=== PATIENT | female | born 1930 | race Caucasian/White ===

== ENCOUNTER 2018-03-06 07:58 | Emergency (ER) | payer MEDICARE ==
[2018-03-06] MEDS ORDERED: Bacitracin Zinc 1 Packet ONE (09:31)
[2018-03-06] MEDS ORDERED: Lidocaine 1% w/Epinephrine 1:100K 20 ML VIAL ONE (09:31)
[2018-03-06] MEDS ORDERED: Adacel (T-DAP) 0.5 ML VIAL ONE (09:31)
== END 2018-03-06 10:25 | disposition home or self-care (01) ==
LOC: ERS 07:58
DX: S61.212A Laceration without foreign body of right middle finger without damage to nail, initial encounter (principal); S61.210A Laceration without foreign body of right index finger without damage to nail, initial encounter; S61.252A Open bite of right middle finger without damage to nail, initial encounter; S61.250A Open bite of right index finger without damage to nail, initial encounter; E11.9 Type 2 diabetes mellitus without complications; I10 Essential (primary) hypertension; I25.10 Atherosclerotic heart disease of native coronary artery without angina pectoris; I25.2 Old myocardial infarction; F32.9 Major depressive disorder, single episode, unspecified; Z86.73 Personal history of transient ischemic attack (TIA), and cerebral infarction without residual deficits; Z79.899 Other long term (current) drug therapy; W54.0XXA Bitten by dog, initial encounter
CPT/HCPCS: 12002; 90471; 90715; J2001

== ENCOUNTER 2019-09-11 21:50 | Emergency (ER) | payer MEDICARE | END 2019-09-11 22:19 | disposition home or self-care (01) | LOC: SCSER 21:50 | DX: E11.65 Type 2 diabetes mellitus with hyperglycemia (principal); I48.91 Unspecified atrial fibrillation; I25.2 Old myocardial infarction; I10 Essential (primary) hypertension; I25.10 Atherosclerotic heart disease of native coronary artery without angina pectoris; E78.5 Hyperlipidemia, unspecified; F32.9 Major depressive disorder, single episode, unspecified; Z86.73 Personal history of transient ischemic attack (TIA), and cerebral infarction without residual deficits; Z79.899 Other long term (current) drug therapy; Z79.4 Long term (current) use of insulin; Z79.01 Long term (current) use of anticoagulants | CPT/HCPCS: 36416; 99284 ==